=== PATIENT | female | born 1990 | race Asian ===

== ENCOUNTER 2024-01-22 12:42 | Emergency (ER) | payer OTHER ==
[~2024-01-22 12:42] MED LIST: Iopamidol 200 41% 50 ML VIAL FS ONE
[2024-01-22] MEDS ORDERED: Ketorolac Tromethamine 30 MG (1 mL) VIAL ONE (15:00)
[2024-01-22 15:07] LABS: #Basophils 0.02 10x3/uL (0.0-0.2); #Eosinophils 0.11 10x3/uL (0.0-0.5); #Monocytes 0.36 10x3/uL (0.0-1.1); #Neutrophils 4.96 10x3/uL (1.5-8.4); %Basophils 0.3 % (0.0-2.0); %Eosinophils 1.8 % (0.0-6.0); %Lymphocytes 10.5 % (18.0-47.0); %Monocytes 5.9 % (0.0-10.0); %Neutrophils 81.2 % (40.0-75.0); Hematocrit 40.5 % (34.9-44.5); Hemoglobin 14.5 g/dL (12.0-15.5); Mean Corpuscular HGB CONC 35.8 g/dL (32.0-36.0); Mean Corpuscular Hemoglobin 31.2 pg (27.0-33.0); Mean Corpuscular Volume 87.1 fL (81.6-98.3); Mean Platelet Volume 9.9 fL (7.4-10.4); Platelet Count 142 10x3/uL (150-450); RBC Distribution Width 12.2 % (11.5-14.5); Red Blood Cell (RBC) Count 4.65 10x6/uL (3.90-5.03); White Blood Cell (WBC) Count 6.1 10x3/uL (3.5-10.5)
[2024-01-22 15:12] LABS: BHCG - Serum Negative (NEGATIVE); Pregs Control Bar Appear? YES (CONTROL BAR)
[2024-01-22 15:13] LABS: Pregs Control Background? CLEAR/WHITE (CLR/WHITE)
[2024-01-22 15:20] LABS: ALT (SGPT) 8 U/L (8-55); AST (SGOT) 17 U/L (5-34); Alkaline Phosphatase 65 U/L (40-110); Anion Gap 14 mmol/L (10-20); BUN (Urea Nitrogen) 10 mg/dL (7.0-18.7); Bilirubin, Total 0.9 mg/dL (0.2-1.2); Calc. Creatinine Clearance 0 mL/min (70-130); Calcium 8.6 mg/dL (7.8-10.44); Carbon Dioxide 22 mmol/L (22-29); Chloride 103 mmol/L (98-107); Estimated GFR 118; Globulin 2.8 g/dL (2.4-3.5); Glucose 88 mg/dL (70-105); Lipase 28 U/L (8-78); Magnesium 1.8 mg/dL (1.6-2.6); Potassium 3.9 mmol/L (3.5-5.1); Protein, Total 6.8 g/dL (6.0-8.3); Sodium 135 mmol/L (136-145)
[2024-01-22 15:23] LABS: Troponin I Less than 0.010 ng/mL (< 0.028)
== END 2024-01-22 16:48 | disposition home or self-care (01) ==
LOC: CSHERS 12:42
DX: R10.10 Upper abdominal pain, unspecified (principal); M54.6 Pain in thoracic spine
CPT/HCPCS: 71045; 74177; 80053; 83690; 83735; 84484; 84703; 85025; 93005; 96374; J1885